=== PATIENT | female | born 1990 | race Caucasian/White ===

== ENCOUNTER 2024-05-28 05:43 | Inpatient (IN) ==
[2024-05-28 06:34] LABS: ABS Eosinophils 0.1 10^3/uL (0.0-0.5); ABS Lymphocytes 1.8 10^3/uL (1.0-4.8); ABS Monocytes 0.6 10^3/uL (0.0-0.9); ABS Neutrophils 5.9 10^3/uL (1.5-7.6); Hematocrit 35.4 % (35-45); Hemoglobin 12.8 g/dL (11.5-14.3); Lymphocyte % 21.1 %; Mean Corpuscular Hemoglobin 34.4 pg (27-33); Mean Corpuscular Hgb Conc 36.3 g/dL (31-36); Mean Corpuscular Volume 94.8 fL (80-97); Mean Platelet Volume 8.6 fL (7.5-11.2); Platelet Count 274 10^3/uL (150-450); Red Blood Count 3.74 10^6/uL (3.63-4.92); Red Cell Distribution Width 13.3 % (12-17); White Blood Count 8.4 10^3/uL (3.8-11.8)
[2024-05-28] MEDS ORDERED: Ondansetron 4 mg VIAL 2 MG/ML 2 ml VIAL IV PRN (06:50)
[2024-05-28] MEDS ORDERED: Metoclopramide 5 MG/ML VIAL (10 mg) IV PRN (06:50)
[2024-05-28] MEDS ORDERED: Acetaminophen IV 1 GM/100ML 1,000 MG/100 ML BAG IV PRN (06:50)
[2024-05-28] MEDS ORDERED: Naloxone 0.4 mg VIAL 0.4 mg/ml 1 ml VIAL IV PUSH PRN (06:50)
[2024-05-28] MEDS ORDERED: ceFAZolin *3* GM in NS PREMIX 3 GM/100 ML BAG IV ONE (07:19)
[2024-05-28] MEDS ORDERED: fentaNYL 100 mcg/2 ml 50 MCG/ML VIAL ONE (07:21)
[2024-05-28] MEDS ORDERED: Morphine 10 MG/ML VIAL (1 ml) ONE (07:21)
[2024-05-28] MEDS ORDERED: Morphine PF AMP (0.5MG/ML) 5 MG/10 ML AMP ONE (07:21)
[2024-05-28] MEDS ORDERED: Phenylephrine 40 mcg/mL 10mL (400mcg) SYRINGE ONE ×2 (07:37→08:47)
[2024-05-28] MEDS ORDERED: Ondansetron 4 mg VIAL 2 MG/ML 2 ml VIAL ONE (07:38)
[2024-05-28] MEDS ORDERED: Dexamethasone IV 4 MG/ML VIAL 1 ml VIAL ONE (07:38)
[2024-05-28] MEDS: Sodium Citrate/Citric Acid LIQ 15 ML UDC PO ONE (07:59)
[2024-05-28] MEDS ORDERED: Oxytocin 10 UNITS/ML 1 ML VIAL ONE (08:44)
[2024-05-28] MEDS ORDERED: Acetaminophen IV 1 GM/100ML 1,000 MG/100 ML BAG IV ONE (09:05)
[2024-05-28] MEDS ORDERED: Glycerin ADULT 2.4 gm SUPP PR PRN (09:53)
[2024-05-28] MEDS ORDERED: Witch Hazel PAD JAR TOPICAL PRN (09:53)
[2024-05-28] MEDS ORDERED: Dibucaine 1% OINT 28.35 GM TUBE PR PRN (09:53)
[2024-05-28] MEDS ORDERED: Lactated Ringers 1000 ml BAG 1,000 ML IV SCH (10:00)
[2024-05-28 10:26] LABS: Urine Benzodiazepine Screen None Detected (None Detect); Urine Cannabinoids Screen None Detected (None Detect); Urine Opiates Screen None Detected (None Detect)
[2024-05-29 06:47] LABS: ABS Eosinophils 0.1 10^3/uL (0.0-0.5); ABS Lymphocytes 1.6 10^3/uL (1.0-4.8); ABS Monocytes 0.9 10^3/uL (0.0-0.9); ABS Neutrophils 6.7 10^3/uL (1.5-7.6); Eosinophil % 0.8 %; Hematocrit 31.9 % (35-45); Hemoglobin 11.4 g/dL (11.5-14.3); Mean Corpuscular Hemoglobin 34.5 pg (27-33); Mean Corpuscular Hgb Conc 35.7 g/dL (31-36); Mean Corpuscular Volume 96.5 fL (80-97); Mean Platelet Volume 8.1 fL (7.5-11.2); Platelet Count 236 10^3/uL (150-450); Red Blood Count 3.31 10^6/uL (3.63-4.92); Red Cell Distribution Width 13.3 % (12-17); White Blood Count 9.2 10^3/uL (3.8-11.8)
[2024-05-31] MEDS: Buffered Lidocaine 1% SYRIN 1 ml INTRADERM ONE (08:16)
[2024-05-31] MEDS: Lactated Ringers 1000 ml BAG 1,000 ML IV ONE (08:16)
[2024-05-31] MEDS: ceFAZolin 2 GM/50 ML BAG IV ONE (08:17)
[2024-05-31] MEDS: Lactated Ringers 1000 ml BAG 1,000 ML IV SCH (08:17)
[2024-05-31] MEDS: ceFAZolin 1 GM in Dextrose 1 GM/50 ML BAG IVPB ONE (08:17)
[2024-05-31] MEDS: Sodium Citrate/Citric Acid LIQ 15 ML UDC PO ONE (08:17)
[2024-05-31 08:20] VITALS: BP 142/87
== END 2024-05-31 14:20 | disposition home or self-care (01) | DRG 788 ==
LOC: MCHOB 05:43
PROVIDERS: ADMIT Obstetrics & Gynecology; ATTEND Obstetrics & Gynecology